=== PATIENT | female | born 1975 | race Caucasian/White ===

== ENCOUNTER → 2016-08-24 | Outpatient (CLI) | payer BC ==
[~2016-08-24] MED LIST: OXYC1SOL5 PO
== END ==
LOC: HPND 07:45
PROVIDERS: ATTEND Obstetrics & Gynecology
DX: O03.4 Incomplete spontaneous abortion without complication (principal)
CPT/HCPCS: 76801

== ENCOUNTER → 2016-08-25 | Day surgery (SDC) | payer BC ==
--- NOTE | 2016-08-24 12:36 | MH ---
cc: BA LLOYD DATE OF ADMISSION 08/25/2016 DATE OF 1975 ADMITTING DIAGNOSIS Spontaneous demise at eight to nine weeks gestation. HISTORY OF PRESENT ILLNESS The patient is a 41-year-old white female para 3-1-0-4, LMP of 06/06/2016. Ultrasound on 08/19/2016 showed a nonviable at eight weeks and three days. She had a follow-up ultrasound at [facility] on 08/2016 that confirmed demise. She is now admitted for D&C. PAST MEDICAL HISTORY She required previous surgery. 1. She had PE tubes in childhood. 2. She had in 2016 for failure to progress, OP and Distress. That child at two months of age of unknown etiology. She has four living children. MEDICATIONS Vitamins. ALLERGIES None TRANSFUSIONS None SOCIAL HISTORY She is . 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 Alcohol, tobacco and drugs are none. PHYSICAL EXAM This is a well-nourished well-developed white female. VITAL SIGNS: Stable. HEENT: Exam is normal. CHEST: Clear. HEART: Regular rate. BREASTS: Symmetrical. ABDOMEN: Benign. PELVIC: Normal external genitalia and BUS. Vagina is normal. Cervix normal. Uterus is eight weeks' size. Adnexa nonpalpable. ASSESSMENT As above. PLAN She is now admitted outpatient D&C. While in the office, I explained the procedures, the risks, benefits and complications and patient would like to proceed. MD SHASTA Villar/KIARA /12:28 PM /12:34 PM
[~2016-08-25] VITALS: Ht 160 cm; Wt 67.8 kg
[~2016-08-25] MED LIST changes: +ACETAMINOPHEN 1000 MG/100 ML VIAL IV SCH; +CHLORHEXIDINE GLUCONATE 2 % 1 PACK (2 CLOTHS) TOPICAL PRN; +DEXAMETHASONE SOD PHOS 4 MG/ML VIAL ONE; +DICLOFENAC SODIUM 37.5 MG/ML VIAL IV PUSH ONE; +DO NOT ADM ANY ANTICOAGULANT DRUGS PRN; +FAMOTIDINE 20 MG/2 ML VIAL ONE; +INSULIN HUMAN REGULAR 1,000 UNITS/10 ML VIAL SQ PRN; +KETOROLAC TROMETHAMINE 60 MG/2 ML (IM) VIAL IM ONE; +LACTATED RINGER'S 1000 ML IV PRN; +METOCLOPRAMIDE HCL 10 MG/2 ML VIAL IV PUSH PRN; +METOPROLOL TARTRATE 25 MG TAB PO PRN; +MIDAZOLAM HCL 2 MG/2 ML VIAL ONE; +ONDANSETRON HCL 4 MG/2 ML VIAL IV PUSH ONE; +OXYTOCIN 10 UNIT/ML AMP ONE; +POVIDONE IODINE 5% (ANTISEPSIS KIT) 4 APPLICATIONS EACH NARE PRN; +PROPOFOL 200 MG/20 ML AMP IV ONE; +SODIUM CHLORID 0.9% 500 ML IV PRN; +ceFAZolin 1,000 MG/NS 100 ML IV SCH
[2016-08-25 07:12] VITALS: BP 140/72; PULSE 80; RESP 16; TEMP 98.7; O2SAT 100
[2016-08-25 07:45] LABS: AUTOMATED NEUTROPHIL # 4.4 TH/MM3 (1.8-7.7); BASOPHIL % 0.4 % (0.0-2.0); EOSINOPHIL # 0.1 TH/MM3 (0-0.4); EOSINOPHIL % 1.2 % (0.0-4.0); HEMATOCRIT 33.8 % (35.0-46.0); HEMO FLAGS DIFF FINAL; LYMPH % 27.4 % (9.0-44.0); LYMPHOCYTE # 1.9 TH/MM3 (1.0-4.8); MEAN CORPUSCULAR HEMOGLOBIN 27.8 PG (27.0-34.0); MEAN CORPUSCULAR HGB CONC 33.9 % (32.0-36.0); MONO % 6.2 % (0.0-8.0); NEUT % 64.8 % (16.0-70.0); PLATELET COUNT 304 TH/MM3 (150-450); RED BLOOD COUNT 4.12 MIL/MM3 (4.00-5.30); RED CELL DISTRIBUTION WIDTH 15.8 % (11.6-17.2); WHITE BLOOD COUNT 6.8 TH/MM3 (4.0-11.0)
[2016-08-25 07:46] LABS: BLOOD, URINE NEG (NEG); COMMENT (UR) CULT NOT INDICATED; CULTURE IF INDICATED CULT NOT INDICATED; GLUCOSE,URINE NEG (NEG); KETONE, URINE NEG (NEG); MUCUS URINE FEW /lpf (OCC); NITRITE,URINE NEG (NEG); PH, URINE 5.5 (5.0-8.5); SQUAMOUS EPITHELIAL CELL URINE 2 /hpf (0-5); URINE COLOR YELLOW (YELLW/STRAW)
[2016-08-25 09:50] VITALS: BP 110/67; PULSE 62; RESP 16; TEMP 97.7; O2SAT 100
--- NOTE | 2016-08-26 06:54 | MP ---
cc: BA LLOYD DATE OF SURGERY 08/25/2016 PREOPERATIVE DIAGNOSIS Spontaneous 8-9 weeks gestation. POSTOPERATIVE DIAGNOSIS Spontaneous 8-9 weeks gestation. PROCEDURE Suction and sharp D&C. ANESTHESIA General LMA. ESTIMATED BLOOD LOSS 200 cc FLUIDS Half liter of crystalloid OBJECTIVE FINDINGS Following the induction of adequate general LMA anesthesia, the patient was prepped and draped supine on the operating table in the dorsolithotomy position in the usual sterile fashion with the bladder being drained via catheterization. Exam under anesthesia revealed an 8-9 weeks sized uterus anterior with no adnexal masses. A heavy weighted speculum was placed in the posterior fornix of the vagina. The anterior lip of the cervix grasped with a single toothed tenaculum. Cervix and uterus sounded to 9 cm. The cervix was then dilated to #18 Hanks dilator. A #8 suction curette was passed to remove POC-like material, followed by a small sharp curette to dislodge adherent tissue. The suction catheter passed again to apple picking supervisor loose tissue and debris. All instruments removed, all counts correct. The uterus was now contracted down to six weeks size. The patient was taken out of the [facility]. She was awakened and taken to the recovery room in good condition. MD SHASTA Villar/KIARA /8:55 AM /6:54 AM
== END | disposition home or self-care (01) ==
LOC: HSDC 06:37
PROVIDERS: ATTEND Obstetrics & Gynecology
DX: O02.1 Missed abortion (principal)
CPT/HCPCS: 01965; 59820; 81001; 85025; 86850; 86900; 86901; 88237; 88264; 88280; 88305; J0131; J0690; J1100; J1885; J2250; J2405; J2590; J3010; J7120; J1130

== ENCOUNTER → 2017-02-02 | Outpatient (CLI) | payer BC | LOC: HPND 12:46 | PROVIDERS: ATTEND Obstetrics & Gynecology | DX: O09.521 Supervision of elderly multigravida, first trimester (principal); O34.211 Maternal care for low transverse scar from previous cesarean delivery; Z36.82 Encounter for antenatal screening for nuchal translucency | CPT/HCPCS: 76813 ==

== ENCOUNTER → 2017-03-09 | Outpatient (CLI) | payer BC | LOC: HPND 12:41 | PROVIDERS: ATTEND Obstetrics & Gynecology | DX: O09.522 Supervision of elderly multigravida, second trimester (principal); O09.292 Supervision of pregnancy with other poor reproductive or obstetric history, second trimester | CPT/HCPCS: 76811 ==

== ENCOUNTER → 2017-04-07 | Outpatient (CLI) | payer BC | LOC: HPND 07:51 | PROVIDERS: ATTEND Obstetrics & Gynecology | DX: O09.522 Supervision of elderly multigravida, second trimester (principal) | CPT/HCPCS: 76816 ==

== ENCOUNTER → 2017-05-10 | Outpatient (CLI) | payer BC | LOC: HPND 09:58 | PROVIDERS: ATTEND Obstetrics & Gynecology | DX: O09.522 Supervision of elderly multigravida, second trimester (principal); O09.292 Supervision of pregnancy with other poor reproductive or obstetric history, second trimester | CPT/HCPCS: 76816 ==

== ENCOUNTER → 2017-06-07 | Outpatient (CLI) | payer BC | LOC: HPND 09:05 | PROVIDERS: ATTEND Obstetrics & Gynecology | DX: O26.843 Uterine size-date discrepancy, third trimester (principal); O09.523 Supervision of elderly multigravida, third trimester | CPT/HCPCS: 76816 ==

== ENCOUNTER 2017-08-09 16:07 | Inpatient (IN) | payer BC ==
[~2017-08-09] VITALS: Ht 162.6 cm; Wt 74.0 kg
--- NOTE | 2017-08-09 10:50 | MH ---
cc: Amanuel Moody MD DATE OF ADMISSION: 08/09/2017 ADMITTING DIAGNOSES: 1. at 40-41 weeks. 2. Advanced maternal age 42. 3. Previous section. HISTORY OF PRESENT ILLNESS: The patient is a 42-year-old white female, para 3-1-1-4, with LMP of 10/31/2016, EDC of 08/07/2017. Her course has been benign. Her deliveries: In 2010, single term vaginal. In 2012, twins at 36 weeks, vaginal. In 2013, term vaginal delivery. In 2015, for failure to progress and LT and that child at 2 months of age from a seizure disorder. She had a D and C in 2015 for spontaneous with trisomy 14. MEDICATIONS: Vitamins and iron. ALLERGIES: NONE. TRANSFUSIONS: None. SOCIAL HISTORY: . 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 Alcohol, tobacco and drugs: None. PAST SURGICAL HISTORY: In childhood: PE tubes. PHYSICAL EXAMINATION: GENERAL: This is a gravid, white female in no distress. HEENT: Normal. CHEST: Clear. HEART: Regular rate. BREASTS: Symmetrical. ABDOMEN: Gravid. EFW of 600 grams. PELVIC: Cervix is closed. Uterus is normal. ASSESSMENT: As above. PLAN: She is now admitted for repeat section. While in the office, I explained the procedures, the risk and benefits and complications including, but not limited to , infection, bleeding were explained and accepted. Amanuel Moody MD JAW/TL , 10:23 AM , 10:49 AM
[~2017-08-09 16:07] MED LIST changes: -ACETAMINOPHEN 1000 MG/100 ML VIAL IV SCH; -CHLORHEXIDINE GLUCONATE 2 % 1 PACK (2 CLOTHS) TOPICAL PRN; -DEXAMETHASONE SOD PHOS 4 MG/ML VIAL ONE; -DICLOFENAC SODIUM 37.5 MG/ML VIAL IV PUSH ONE; -DO NOT ADM ANY ANTICOAGULANT DRUGS PRN; -FAMOTIDINE 20 MG/2 ML VIAL ONE; -INSULIN HUMAN REGULAR 1,000 UNITS/10 ML VIAL SQ PRN; +KETOROLAC TROMETHAMINE 30 MG/ML (IVP) VIAL IV PUSH ONE; -KETOROLAC TROMETHAMINE 60 MG/2 ML (IM) VIAL IM ONE; +LACTATED RINGER'S 1000 ML INJ 1,000 ML IV ONE; -LACTATED RINGER'S 1000 ML IV PRN; -METOCLOPRAMIDE HCL 10 MG/2 ML VIAL IV PUSH PRN; -METOPROLOL TARTRATE 25 MG TAB PO PRN; -MIDAZOLAM HCL 2 MG/2 ML VIAL ONE; +ONDANSETRON HCL 4 MG/2 ML VIAL IV ONE; -ONDANSETRON HCL 4 MG/2 ML VIAL IV PUSH ONE; -OXYC1SOL5 PO; +OXYTOCIN 10 UNIT/ML AMP IV ONE; -OXYTOCIN 10 UNIT/ML AMP ONE; +PHENYLEPH/NS 1000 MCG/10 ML SYR IV ONE; -POVIDONE IODINE 5% (ANTISEPSIS KIT) 4 APPLICATIONS EACH NARE PRN; -PROPOFOL 200 MG/20 ML AMP IV ONE; +ROCURONIUM INJ 50 MG/5 ML SYRINGE IV PUSH ONE; -SODIUM CHLORID 0.9% 500 ML IV PRN; -ceFAZolin 1,000 MG/NS 100 ML IV SCH; +ceFAZolin INJ 1,000 MG VIAL IV ONE
[2017-08-09] MEDS: LACTATED RINGER'S 1000 ML INJ 1,000 ML IV SCH ×2 (16:28→23:04)
[2017-08-09] MEDS ORDERED: PREN29TA PO (16:59)
[2017-08-09] MEDS ORDERED: LACTATED RINGER'S 1000 ML IV ONE (17:00)
[2017-08-09 17:01] LABS: BASOPHIL % 0.1 % (0.0-2.0); EOSINOPHIL % 0.4 % (0.0-4.0); HEMATOCRIT 33.9 % (35.0-46.0); HEMOGLOBIN 11.2 GM/DL (11.6-15.3); LYMPH % 15.2 % (9.0-44.0); LYMPHOCYTE # 1.7 TH/MM3 (1.0-4.8); MEAN CELL VOLUME 84.6 FL (80.0-100.0); MEAN CORPUSCULAR HGB CONC 33.1 % (32.0-36.0); MEAN PLATELET VOLUME 9.2 FL (7.0-11.0); MONO % 4.7 % (0.0-8.0); MONOCYTE # 0.5 TH/MM3 (0-0.9); NEUT % 79.6 % (16.0-70.0); PLATELET COUNT 319 TH/MM3 (150-450); RED BLOOD COUNT 4.01 MIL/MM3 (4.00-5.30); RED CELL DISTRIBUTION WIDTH 16.7 % (11.6-17.2); WHITE BLOOD COUNT 11.3 TH/MM3 (4.0-11.0)
[2017-08-09 17:04] LABS: BILIRUBIN, URINE NEG (NEG); BLOOD, URINE NEG (NEG); GLUCOSE,URINE NEG (NEG); KETONE, URINE NEG (NEG); NITRITE,URINE NEG (NEG); SQUAMOUS EPITHELIAL CELL URINE 5 /hpf (0-5); URINE COLOR LIGHT-YELLOW (YELLW/STRAW); URINE LEUKOCYTE ESTERASE NEG (NEG)
[2017-08-09] MEDS ORDERED: CITRIC ACID-SODIUM CITRATE LIQ 30 ML UDC ONE (17:04)
[2017-08-09] MEDS ORDERED: MORPHINE SULFATE PF 5 MG/10 ML VIAL ONE (17:07)
[2017-08-09] MEDS ORDERED: ACETAMINOPHEN 1000 MG/100 ML 100 ML IV ONE (17:07)
[2017-08-09] MEDS ORDERED: ceFAZolin 1,000 MG/NS 100 ML IV SCH ×2 (17:15)
[2017-08-09] MEDS ORDERED: CITRIC ACID-SODIUM CITRATE LIQ 30 ML UDC PO SCH (17:15)
[2017-08-09] MEDS ORDERED: EPIDURAL-NO SYSTEMIC NARCOTICS PRN (17:18)
[2017-08-09] MEDS ORDERED: EPIDURAL-NALOXONE HCL 0.4 MG/ML AMP IV PUSH PRN (17:18)
[2017-08-09] MEDS ORDERED: EPIDURAL-DIPHENHYDRAMINE HCL 50 MG CAP PO PRN (17:18)
[2017-08-09] MEDS ORDERED: EPIDURAL-DIPHENHYDRAMINE HCL 50 MG/ML VIAL IV PUSH PRN (17:18)
[2017-08-09] MEDS ORDERED: EPIDURAL-DO NOT ADMINISTER ANTICOAGULANTS PRN (17:18)
[2017-08-09] MEDS ORDERED: LACTATED RINGER'S 1000 ML IV SCH (17:30)
[2017-08-09] MEDS: ACETAMINOPHEN 1000 MG/100 ML VIAL IV SCH (18:00)
[2017-08-09] MEDS ORDERED: KETOROLAC TROMETHAMINE 30 MG/ML (IVP) VIAL IV PUSH PRN (18:15)
[2017-08-09] MEDS ORDERED: MEASLES, MUMPS, RUBELLA VACCINE 0.5 ML VIAL SQ ONE (18:15)
[2017-08-09] MEDS ORDERED: oxyCODONE/ACETAMINOPHEN 5 MG/325 MG TAB PO PRN ×2 (18:15)
[2017-08-09] MEDS ORDERED: OXYTOCIN 30 UNITS-500ML PREMIX 500 ML IV ONE (18:15)
--- NOTE | 2017-08-09 18:56 | MP ---
cc: Amanuel Moody MD DATE OF OPERATION: 08/09/2017 PREOPERATIVE DIAGNOSES: 1. at 40-41 weeks. 2. Previous section. 3. ____. POSTOPERATIVE DIAGNOSES: 1. at 40-41 weeks. 2. Previous section. 3. ____ 4. Delivered. PROCEDURE PERFORMED: Repeat low transverse section. ANESTHESIA: Spinal. SURGEON: Amanuel Moody MD STEAM TANK OPERATOR: Amada Martinez ESTIMATED BLOOD LOSS: About 500 mL FLUIDS: 1.2 liters crystalloid. DESCRIPTION OF PROCEDURE: Following induction of adequate spinal anesthesia, the patient was prepped and draped supine on the operating table, left lateral tilt position, usual sterile fashion, with the bladder being drained by Francis catheterization. Abdomen was opened through a Pfannenstiel incision using a knife to excise her old scar. The fascial incision extended transversely, stripped the muscles. The rectus muscle was split in the midline and the peritoneum opened sharply without incident. The bladder flap was taken down sharply and retracted inferior with the Charlie blade. The lower uterine segment was incised transverse with knife and extended with blunt dissection and ____ clear fluid. The baby was in LOT position. The vacuum extractor applied to the occiput and used to lift the head through the ____ wound. Mouth was suctioned. Nuchal cord reduced. Cord clamped and cut and the baby passed to the waiting team. Viable, vigorous female, Apgars were 8 and 9, weight 6 pounds 15 ounces. Cord blood collected for preservation. A cord segment collected and fluid collected after we obtained cord blood for typing. The uterine cavity cleaned out with laps. Uterus exteriorized. Uterine wound was then closed in 2 layers running suture, first with a running locking ____ Vicryl, second with a running imbricating ____ Vicryl. Posterior inspection of the uterus, tubes and ovaries were normal. The uterus was replaced in the cavity. Irrigation performed, we examined it and the tubes and ovaries were normal. The bladder flap was now closed with running 3-0 Vicryl. All ____ were removed. Counts were correct. The anterior peritoneum closed with running 2-0 Vicryl. The fascia closed with a running locking stitch of 0 Vicryl toward midline, tied. Subcutaneous with 3-0 Vicryl and the skin with a running subcuticular 3-0 Monocryl. Dermabond applied. All counts were correct and the patient was awakened and taken to the recovery room in good condition. MD SHASTA Villar/THANH/adelaide , 06:16 PM , 06:43 PM
[2017-08-09] MEDS ORDERED: ONDANSETRON HCL 4 MG/2 ML VIAL IVP PRN (19:00)
[2017-08-09] MEDS ORDERED: DOCUSATE SODIUM 50 MG/SENNA 8.6 MG TAB PO PRN (21:00)
[2017-08-09] MEDS ORDERED: ZOLPIDEM TARTRATE 5 MG TAB PO PRN (21:00)
[2017-08-09] MEDS ORDERED: SIMETHICONE 80 MG CHEWABLE TAB PO PRN (21:00)
[2017-08-10] MEDS: ACETAMINOPHEN 1000 MG/100 ML VIAL IV SCH ×2 (01:47→10:15)
[2017-08-10 06:06] LABS: AUTOMATED NEUTROPHIL # 10.1 TH/MM3 (1.8-7.7); BASOPHIL % 0.3 % (0.0-2.0); EOSINOPHIL # 0.1 TH/MM3 (0-0.4); EOSINOPHIL % 0.6 % (0.0-4.0); HEMOGLOBIN 10.2 GM/DL (11.6-15.3); LYMPH % 14.5 % (9.0-44.0); LYMPHOCYTE # 1.9 TH/MM3 (1.0-4.8); MEAN CELL VOLUME 86.6 FL (80.0-100.0); MEAN CORPUSCULAR HEMOGLOBIN 28.6 PG (27.0-34.0); MEAN PLATELET VOLUME 8.9 FL (7.0-11.0); MONO % 5.7 % (0.0-8.0); MONOCYTE # 0.7 TH/MM3 (0-0.9); NEUT % 78.9 % (16.0-70.0); PLATELET COUNT 261 TH/MM3 (150-450); RED BLOOD COUNT 3.58 MIL/MM3 (4.00-5.30); RED CELL DISTRIBUTION WIDTH 16.9 % (11.6-17.2); WHITE BLOOD COUNT 12.8 TH/MM3 (4.0-11.0)
[2017-08-10 06:10] LABS: BICARBONATE 20.1 MEQ/L (21.0-32.0); CALCIUM 8.1 MG/DL (8.5-10.1); CREATININE 0.53 MG/DL (0.50-1.00)
[2017-08-10] MEDS: IBUPROFEN 600 MG TAB PO PRN ×3 (10:15→22:34)
[2017-08-10 20:09] VITALS: BP 109/60; PULSE 76; RESP 18; TEMP 97.8
[2017-08-11] MEDS ORDERED: OXYC1TAB63 PO (08:16)
--- NOTE | 2017-08-11 08:16 | HHI.DCPOC ---
Discharge Care Plan Report Symptoms to Your Doctor -Temperature above 100.5 degrees -Redness, of incision or excessive or foul smelling drainage -Unusual pain or calf pain -Increased vaginal bleeding -Painful or difficulty urinating -Feelings of extreme sadness or anxiety after 2 weeks Goals to Promote Your Health * To prevent worsening of your condition and complications * To maintain your health at the optimal level Directions to Meet Your Goals Take your medications as prescribed Follow your dietary instruction Follow activity as directed Ensure plenty of rest for recovery Drink fluids for hydration Keep your appointments as scheduled Take your immunizations and boosters as scheduled If your symptoms worsen call your PCP, if no PCP go to Urgent Care Center or Emergency Room Smoking is Dangerous to Your Health. Avoid second hand smoke Call the 24-hour crisis hotline for domestic abuse at Amanuel Moody MD Aug 11, 2017 08:16
[2017-08-11] MEDS ORDERED: DIPHTH/TETANUS/ACEL PERTUSSIS (BOOSTER) 0.5 ML VIAL/PFS IM ONE (09:00)
--- NOTE | 2017-08-11 09:09 | MD ---
cc: Amanuel Moody MD DATE OF DISCHARGE: 08/11/2017 ADMITTING DIAGNOSES: 1. Intrauterine at 40-41 weeks. 2. Advanced maternal age of 42. 3. Previous section. DISCHARGE DIAGNOSES: 1. Intrauterine at 40-41 weeks. 2. Advanced maternal age of 42. 3. Previous section. 4. Delivered. HISTORY OF PRESENT ILLNESS: The patient is a 42-year-old white female, para 3-1-1-4, LMP of 10/31/2016, EDC of 08/07/2017. Her course was benign, had Panorama testing, normal first TM screen and normal testing. Her last delivery was by . She became postdates and delivery was recommended by repeat section. HOSPITAL COURSE: She was admitted for a on 08/09/2017, had a viable vigorous female, Apgars were 8 and 9, weight 6 pounds 15 ounces. The baby's name is Nikole. She is . Her pre and post postop labs were normal. DISCHARGE INSTRUCTIONS: She was advised NPV, light activity, return to see me in 1 week. DISCHARGE MEDICATIONS: She is to take her vitamins at home and iron pills at home. She was given a prescription for Percocet 5, one to two p.o. every 4 hours p.r.n. pain, #60. Her blood type is positive. MD SHASTA Villar/SB , 08:23 AM , 09:08 AM
[2017-08-11] MEDS: IBUPROFEN 600 MG TAB PO PRN (15:34)
== END 2017-08-11 16:52 | disposition home or self-care (01) | DRG 766 ==
LOC: H2EB 16:07 → H1EA 20:16
PROVIDERS: ADMIT Obstetrics & Gynecology; ATTEND Obstetrics & Gynecology
PROC: 10D00Z1 Extraction of Products of Conception, Low, Open Approach (ICD-10-PCS; principal; 2017-08-09)
DX: O34.211 Maternal care for low transverse scar from previous cesarean delivery (principal); O69.81X0 Labor and delivery complicated by cord around neck, without compression, not applicable or unspecified; Z37.0 Single live birth; Z3A.40 40 weeks gestation of pregnancy
CPT/HCPCS: 59025; 80048; 80307; 81001; 85025; 86850; 86900; 86901; 90715; J0131; J0690; J1885; J2274; J2370; J2405; J2590; J7120